=== PATIENT | male | born 1970 ===

== ENCOUNTER 2024-05-27 10:20 | Day surgery (SDC) | payer OTHER ==
[2024-05-22 09:28] LABS: Absolute Basophils 0.1 K/uL (0-0.5); Absolute Eosinophils 0.1 K/uL (0-0.5); Absolute Monocytes 0.5 K/uL (0.1-1.3); Absolute Neutrophil 5.8 K/uL (1.8-8.0); Basophils % 0.5 % (0-1.3); Hematocrit 45.8 % (39.6-49.0); Hemoglobin 15.6 g/dL (13.6-17.9); MCH 30.8 pg (27.0-35.0); MCHC 34.1 g/dL (32.0-36.0); MCV 90.3 fL (80-100); MPV 8.3 fL (7.6-11.3); Neutrophils % 61.5 % (41.7-73.7); Nucleated Red Blood Cells % 0.1 % (0-0); Platelets 257 thou/uL (152-406); RBC Red Blood Cell Count 5.07 M/uL (4.33-5.43); Red Cell Distribution Width 14.2 % (12.1-15.2)
[2024-05-22 09:40] LABS: Anion Gap 8.1 mEq/L (5.0-15.0); Potassium 4.1 mEq/L (3.5-5.1)
--- NOTE | 2024-05-22 12:25 | EKG ---
Test Date: 2024-05-22 Test Time: 09:08:55 [employer] Maintenance: JONG MEASUREMENT RESULTS: Intervals: Rate: 68 TX: 154 QRSD: 94 QT: 350 QTc: 372 [place]ron: P: 68 TX: 154 QRS: 92 T: 77 INTERPRETIVE STATEMENTS: Normal sinus rhythm with sinus arrhythmia Rightward axis Borderline ECG No previous ECG available for comparison Electronically Signed On 05-22-24 12:24:39 CDT by Lan Doran
[2024-05-27] MEDS: NA CHLORIDE 0.9% 1,000 ML ONE (10:43)
[2024-05-27] MEDS ORDERED: propofoL 200 MG/20 ML VIAL IV ONE (11:17)
[2024-05-27] MEDS ORDERED: LIDOCAINE 1% MPF 30 ML VIAL ONE (11:17)
[2024-05-27] MEDS ORDERED: GLYCOPYRROLATE 0.2 MG/ML SYR ONE (11:17)
[2024-05-27 12:30] VITALS: O2SAT 96
[2024-05-27 12:34] VITALS: BP 118/85; TEMP 98.3
== END 2024-05-27 11:51 | disposition home or self-care (01) ==
LOC: OR 10:20
PROVIDERS: ATTEND Surgery
PROC: 0DBL8ZX Excision of Transverse Colon, Via Natural or Artificial Opening Endoscopic, Diagnostic (ICD-10-PCS; 2024-05-27)
PROC: 0DBH8ZX Excision of Cecum, Via Natural or Artificial Opening Endoscopic, Diagnostic (ICD-10-PCS; principal; 2024-05-27 12:00)
DX: Z12.11 Encounter for screening for malignant neoplasm of colon (principal); K57.30 Diverticulosis of large intestine without perforation or abscess without bleeding; K64.3 Fourth degree hemorrhoids; K63.5 Polyp of colon
CPT/HCPCS: 93005; 85025; 80048; 36415; 82947; 88305; 45380; J2704; J2003; J7030